=== PATIENT | male | born 1960 | race Caucasian/White ===

== ENCOUNTER 2019-01-22 00:39 | Emergency (ER) | payer SELFPAY ==
--- OUTSIDE RECORDS SUMMARY | 2019-01-22 00:44 | XMS REPORT | Continuity of Care Document ---
:1960 Author Organization [employer] Care Team Providers Name Role Phone [employer] Unavailable Unavailable Problems Problem Status Onset Classification Date Comments Source Date Reported Unilateral primary 07/25/19 07/27/2017 [facility] osteoarthritis, 18 right knee Gastroesophageal Active Problem 07/27/2017 [facility] reflux disease (disorder) Osteoarthritis Active Problem 07/27/2017 [facility] (disorder) Pain in right knee Active Problem 07/27/2017 [facility] (finding) Medications Medication Details Route Status Patient Ordering Order Source Instructions Provider Date NS bolus 250 mL 250 mL, IV, Inactive [facility] BOLUS, other 2018 (see comment), start date 07/25/17 18:42:00 CDT celecoxib 200 MG 200 mg=1 caps, Active [facility] Oral Capsule Oral, Daily, # 2018 [Celebrex] 30 caps, 3 Refill(s) gabapentin 300 MG 300 mg=1 caps, Active 07/25/ [facility] Oral Capsule Oral, qHS, # 14 2018 caps Docusate Sodium 100 mg=1 caps, Active 07/25/ [facility] 100 MG Oral Oral, BID 2018 Capsule [Colace] Acetaminophen 325 1 tabs, Oral, Active 07/25/ [facility] MG / Hydrocodone q6hr, PRN as 2018 Bitartrate 10 MG needed for Oral Tablet pain, # 90 [[place] 10/325] tabs, 0 Refill(s) Aspirin 81 MG 81 mg=1 tabs, Active [facility] Oral Tablet Oral, BID, take 2018 for 6 weeks Aspirin 325 mg=1 tabs, Inactive 07/25/ [facility] Tab, Oral, BID, 2018 first dose 07/25/17 9:00:00 CDT multivitamin with 1 tabs, Tab, Inactive [facility] minerals Oral, Daily, 2018 first dose 07/25/17 9:00:00 CDT omeprazole 40 mg 40 mg, Misc, No Longer [facility] oral delayed Oral, Daily, Active 2018 release capsule first dose 07/25/17 9:00:00 CDT, Patient's Own Meds Cefazolin 2 gm, Soln-IV, Inactive [facility] IV Piggyback, 2018 q8hr, infuse over 30 minutes, order duration: 2 doses, first dose 07/25/17 8:00:00 CDT, stop date 07/25/17 23:59:00 CDT, Prophylaxis PriLOSEC 40 mg=2 caps, Inactive [facility] Cap-EC, Oral, 2018 qAM, first dose 07/25/17 8:00:00 CDT Cefazolin 1 gm, Soln-IV, No Longer [facility] IV Piggyback, Active 2017 q8hr, infuse over 30 minutes, first dose 07/24/17 23:00:00 CDT, stop date 07/25/17 22:59:00 CDT, DC THIS ORDER IF DOCUMENTED ANCEF ALLERGY, Prophylaxis Colace 100 mg=1 caps, No Longer [facility] Cap, Oral, BID, Active 2017 first dose 07/24/17 21:00:00 CDT Celebrex 200 mg=2 caps, No Longer [facility] Cap, Oral, BID, Active 2017 first dose 07/24/17 21:00:00 CDT Clindamycin 600 mg, Inactive I Soln-IV, IV 2018 Piggyback, q8hr, infuse over 30 minutes, order duration: 3 doses, first dose 07/24/17 20:00:00 CDT, stop date 07/25/17 19:59:00 CDT, GIVE THIS ONLY IF ANCEF ALLERGIC, Prophylaxis Morphine 3 mg=1.5 mL, No Longer 07/24/ [facility] Injection, IV Active 2018 Push, q3hr PRN for breakthrough pain, first dose 07/24/17 18:42:00 CDT Acetaminophen 325 1 tabs, Tab, No Longer 07/24/ [facility] MG / Hydrocodone Oral, q4hr PRN Active 2017 Bitartrate 10 MG for pain Oral Tablet mild-moderate [[place] 10/325] (1-6), first dose 07/24/17 18:42:00 CDTNotes: Max 4gm acetaminophen in 24 hours Ondansetron 4 mg=2 mL, No Longer 07/24/ [facility] Injection, IV Active 2018 Push, q8hr PRN for nausea/vomiting , first dose 07/24/17 18:42:00 CDT Promethazine 25 mg=1 mL, No Longer 07/24/ [facility] Injection, IM, Active 2018 q4hr PRN for severe nausea, first dose 07/24/17 18:42:00 CDT Ambien 5 mg=1 tabs, No Longer 07/24/ [facility] Tab, Oral, Once Active 2018 a day (at bedtime) PRN for sleep, first dose 07/24/17 18:42:00 CDT Diphenhydramine 25 mg=1 caps, No Longer 07/24/ [facility] Cap, Oral, q8hr Active 2017 PRN for itching, first dose 07/24/17 18:42:00 CDT Diphenhydramine 25 mg=0.5 mL, Inactive [facility] Injection, IV 2018 Push, Once, first dose 07/24/17 18:00:00 CDT, stop date 07/24/17 18:00:00 CDT Glycopyrrolate 0.2 mg=1 mL, Inactive 07/24/ [facility] Injection, IV 2018 Push, Once, first dose 07/24/17 18:00:00 CDT, stop date 07/24/17 18:00:00 CDT Bupivacaine 0.25% 300 mL, Nerve No Longer [facility] 300 mL pump 300 Block, 5 mL/hr, Active 2018 mL order duration: 3 days, start date 07/24/17 17:56:00 CDT, stop date 07/27/17 17:55:00 CDT Misc Medication 800 mL, Inactive 07/24/ [facility] Soln-IV, IV, 2018 Once, first dose 07/24/17 17:55:00 CDT, stop date 07/24/17 17:55:00 CDT Labetalol 5 mg=1 mL, Inactive 07/24/ [facility] Injection, IV 2018 Push, As Indicated PRN for hypertension, first dose 07/24/17 17:50:00 CDT Hydralazine 5 mg=0.25 mL, Inactive 07/24/ [facility] Injection, IV 2018 Push, As Indicated PRN for hypertension, first dose 07/24/17 17:50:00 CDT Morphine 2 mg=1 mL, Inactive 07/24/ [facility] Injection, IV 2018 Push, q5min PRN for pain, first dose 07/24/17 17:50:00 CDT Demerol HCl 12.5 mg=0.25 Inactive 07/24/ [facility] mL, Injection, 2018 IV Push, Once PRN for shivers, first dose 07/24/17 17:50:00 CDT Saline Lock Flush 10 mL, Soln, IV Inactive 07/24/ [facility] Push, As 2018 Indicated PRN for flush, first dose 07/24/17 17:50:00 CDT Dilaudid 0.5 mg=0.5 mL, Inactive 07/24/ [facility] Injection, IV 2018 Push, q10min PRN for pain severe (7-10), first dose 07/24/17 17:50:00 CDT Levalbuterol 0.21 0.63 mg=3 mL, Inactive 07/24/ [facility] MG/ML Inhalant Soln, NEB, Once 2018 Solution PRN for [Xopenex] shortness of breath or wheezing, first dose 07/24/17 17:50:00 CDT Promethazine 12.5 mg=0.5 mL, Inactive 07/24/ [facility] Injection, IM, 2018 Once PRN for vomiting, first dose 07/24/17 17:50:00 CDT Ondansetron 4 mg=2 mL, Inactive 07/24/ [facility] Injection, IV 2018 Push, q15min PRN for nausea, order duration: 2 doses, first dose 07/24/17 17:50:00 CDT, stop date Limited # of times fentaNYL 50 mcg=1 mL, Inactive 07/24/ [facility] Injection, IV, 2018 Once, first dose 07/24/17 17:17:00 CDT, stop date 07/24/17 17:17:00 CDT ondansetron 4 mg=2 mL, Inactive 07/24/ [facility] Injection, IV, 2018 Once, first dose 07/24/17 17:03:00 CDT, stop date 07/24/17 17:03:00 CDT ferrous sulfate 325 mg=1 tabs, No Longer [facility] Tab, Oral, Active 2018 TIDWM, first dose 07/24/17 17:00:00 CDT Saline Lock Flush 10 mL, Soln, IV No Longer 07/24/ [facility] Push, q8hr, Active 2017 first dose 07/24/17 17:00:00 CDT Bisacodyl 10 mg=1 supp, No Longer 07/24/ [facility] Supp, AK, Once Active 2017 PRN for constipation, first dose 07/24/17 16:55:00 CDT Flu Shot PF 0.5 mL, No Longer 07/24/ [facility] Injection, IM, Active 2017 Once PRN for other (see comment), first dose 07/24/17 16:55:00 CDT Saline Lock Flush 10 mL, Soln, IV No Longer 07/24/ [facility] Push, As Active 2017 Indicated PRN for flush, first dose 07/24/17 16:55:00 CDT LR 1,000 mL 1,000 mL, IV, No Longer 07/24/ [facility] 75 mL/hr, start Active 2017 date 07/24/17 16:55:00 CDT acetaminophen 1,000 mg, Inactive [facility] Soln-IV, IV 2017 Piggyback, Once, first dose 07/24/17 16:05:00 CDT, stop date 07/24/17 16:05:00 CDT fentaNYL 50 mcg=1 mL, Inactive 07/24/ [facility] Injection, IV, 2017 Once, first dose 07/24/17 15:55:00 CDT, stop date 07/24/17 15:55:00 CDT Misc Medication 1,000 mL, Inactive [facility] Soln-IV, IV, 2017 Once, first dose 07/24/17 15:52:00 CDT, stop date 07/24/17 15:52:00 CDT tranexamic acid 1,000 mg=10 mL, Inactive 07/24/ [facility] Soln, IV, Once, 2017 first dose 07/24/17 15:50:00 CDT, stop date 07/24/17 15:50:00 CDT dexamethasone 8 mg=2 mL, Inactive 07/24/ [facility] Injection, IV, 2018 Once, first dose 07/24/17 15:37:00 CDT, stop date 07/24/17 15:37:00 CDT propofol 160 mg=16 mL, Inactive 07/24/ [facility] Emulsion, IV, 2018 Once, first dose 07/24/17 15:27:00 CDT, stop date 07/24/17 15:27:00 CDT lidocaine 4 mL, Inactive [facility] Injection, IV, 2018 Once, first dose 07/24/17 15:27:00 CDT, stop date 07/24/17 15:27:00 CDT midazolam 1 mg=1 mL, Inactive 07/24/ [facility] Injection, IV, 2018 Once, first dose 07/24/17 15:21:00 CDT, stop date 07/24/17 15:21:00 CDT fentaNYL 50 mcg=1 mL, Inactive [facility] Injection, IV, 2017 Once, first dose 07/24/17 15:21:00 CDT, stop date 07/24/17 15:21:00 CDT ceFAZolin 3 gm, Inactive [facility] Powder-Inj, IV, 2017 Once, first dose 07/24/17 15:15:00 CDT, stop date 07/24/17 15:15:00 CDT midazolam 1 mg=1 mL, Inactive [facility] Injection, IV, 2017 Once, first dose 07/24/17 13:02:00 CDT, stop date 07/24/17 13:02:00 CDT fentaNYL 50 mcg=1 mL, Inactive [facility] Injection, IV, 2017 Once, first dose 07/24/17 13:02:00 CDT, stop date 07/24/17 13:02:00 CDT Cefazolin 3 gm, IV Inactive 07/24/ [facility] Piggyback, 2018 Once, infuse over 30 minutes, first dose 07/24/17 12:00:00 CDT, stop date 07/24/17 12:00:00 CDT, patient weight >120 kg, Prophylaxis Neurontin 300 mg=1 caps, Inactive 07/24/ [facility] Cap, Oral, 2018 Once, first dose 07/24/17 12:00:00 CDT, stop date 07/24/17 12:00:00 CDT, Give 1 hour pre-operatively Celebrex 400 mg=4 caps, Inactive 07/24/ [facility] Cap, Oral, 2018 Once, first dose 07/24/17 12:00:00 CDT, stop date 07/24/17 12:00:00 CDT Lidocaine 2% 0.2 0.2 mL, No Longer [facility] mL IV Start Injection, Active 2018 [[facility]] Subcutaneous, Once PRN for other (see comment), first dose 07/24/17 11:26:00 CDT LR 1,000 mL 1,000 mL, IV, Inactive [facility] 30 mL/hr, start 2018 date 07/24/17 11:26:00 CDT Oxycontin 10 mg=1 tabs, Inactive [facility] Tab-ER, Oral, 2018 Pre Op, first dose 07/24/17 11:26:00 CDT Tranexamic Acid 1 gm, Soln, IV, No Longer I As Indicated, Active 2017 first dose 07/24/17 11:26:00 CDT, 30 min prior to incision and at closure Omeprazole 40 MG 40 mg=1 caps, Active [facility] Enteric Coated Oral, Daily, 2018 Capsule GERD Allergies, Adverse Reactions, Alerts Substance Category Reaction Severity Reaction Status Date Comments Source type Reported No Known Assertion Drug [facility] Medication allergy Allergies Immunizations No Data Provided for This Section Results Order Name Results Value Reference Date Interpretation Comments Source Range LABORATORY Results Reported 07/25 (07/25/17 2:45 AM) LABORATORY Neutrophil # 11.0 1.5 - 8.1 07/25 LABORATORY PLT Morph Normal 07/25 LABORATORY Basophil # 0.0 0.0 - 0.2 07/25 LABORATORY Eosinophil % 0.0 0.0 - 0.5 07/25 LABORATORY Monocyte # 1.0 0.0 - 0.8 07/25 LABORATORY Lymphocyte # 0.9 1.0 - 5.5 07/25 LABORATORY RBC Morph Normal 07/25 LABORATORY Basophil % 0.1 0.0 - 1.0 07/25 LABORATORY Neutrophil % 85.5 45.0 - 07/25I 75.0 LABORATORY Monocyte % 7.4 2.0 - 12.0 07/25 LABORATORY Lymphocyte % 7.0 20.0 - 07/25I 40.0 LABORATORY Eosinophil # 0.0 0.0 - 4.0 07/25 LABORATORY Results Reported 07/25 [facility] (07/25/17 2:45 AM) LABORATORY Glucose Lvl 123 70 - 99 07/25 [facility] Comment: Adult reference range values reflect the clinical guidelines<br/ >of the [place] [employer]. LABORATORY Potassium 4.5 3.5 - 5.1 07/25 [facility] Level /2018 LABORATORY BUN 10 7 - 22 07/25I /2017 LABORATORY Chloride 105 95 - 109 07/25 [facility] Level /2018 LABORATORY Creatinine 0.87 0.50 - 07/25 [facility] 1.40 LABORATORY Sodium Level 141 135 - 145 07/25I /2017 LABORATORY eGFR 95 07/25 Result [facility] Comment: The eGFR is calculated using the CKD-EPI formula. In most young, healthy
in dividuals the eGFR will be >90 mL/min/1.73m2. The eGFR declines with age. An
eGFR of 60-89 may be normal in some populations, particularly the elderly, for
whom the CKD-EPI formula has not been extensively validated. Use of the eGFR is
not recommended in the following populations:<b r/>Individuals with unstable creatinine concentrations , including
p atients and those with serious co-morbid conditions.
Patients with extremes in muscle mass or diet.
The data above are obtained from the National Kidney Disease Education Program
(N KDEP) which additionally recommends that when the eGFR is used in patients<br/&g t;with extremes of body mass index for purposes of drug dosing, the eGFR should
be multiplied by the estimated BMI. LABORATORY Carbon 26 24 - 32 07/25 [facility] Dioxide Level /2017 LABORATORY AGAP 14.5 10.0 - 07/25 [facility] 20.0 LABORATORY Calcium Level 8.2 8.5 - 10.5 07/25I LABORATORY Results Reported 07/25I (07/25/17 2:45 AM) LABORATORY Hemoglobin 14.1 14.0 - 07/25 [facility] 18.0 2018 LABORATORY Hematocrit 42.3 42.0 - 07/25 [facility] 54.0 2018 LABORATORY MCV 94.6 80.0 - 07/25 [facility] 94.0 2018 LABORATORY Red Blood 4.47 4.70 - 07/25 [facility] Cell Count 6.10 LABORATORY MCH 31.5 27.0 - 07/25 [facility] 31.0 LABORATORY RDW 13.7 11.5 - 07/25 [facility] 14.5 LABORATORY Platelet 164 133 - 450 07/25 LABORATORY MPV 7.8 7.4 - 10.4 07/25 LABORATORY MCHC 33.3 32.0 - 07/25I 36.0 LABORATORY White Blood 12.9 3.7 - 10.4 07/25 Count LABORATORY Monocyte # 0.8 0.0 - 0.8 07/19 LABORATORY Lymphocyte # 1.7 1.0 - 5.5 07/19 LABORATORY Neutrophil # 3.0 1.5 - 8.1 07/19 LABORATORY Basophil # 0.0 0.0 - 0.2 07/19 LABORATORY Eosinophil % 0.3 0.0 - 0.5 07/19 LABORATORY Basophil % 0.4 0.0 - 1.0 07/19 LABORATORY Eosinophil # 5.5 0.0 - 4.0 07/19 LABORATORY Lymphocyte % 29.7 20.0 - 07/19I 40.0 LABORATORY Monocyte % 12.9 2.0 - 12.0 07/19 LABORATORY Neutrophil % 51.5 45.0 - 07/19I 75.0 LABORATORY Results Scanned 07/19I (07/19/17 4:31 PM) LABORATORY Creatinine 0.72 0.50 - 07/19I 1.40 /2017 LABORATORY BUN 7 7 - 22 07/19 LABORATORY Glucose Lvl 108 70 - 99 07/19 Result Comment: Adult reference range values reflect the clinical guidelines<br/ >of the [place] [employer]. LABORATORY eGFR 103 07/19 Result Comment: The eGFR is calculated using the CKD-EPI formula. In most young, healthy
in dividuals the eGFR will be >90 mL/min/1.73m2. The eGFR declines with age. An
eGFR of 60-89 may be normal in some populations, particularly the elderly, for
whom the CKD-EPI formula has not been extensively validated. Use of the eGFR is
not recommended in the following populations:<b r/>Individuals with unstable creatinine concentrations , including
p atients and those with serious co-morbid conditions.
Patients with extremes in muscle mass or diet.
The data above are obtained from the National Kidney Disease Education Program
(N KDEP) which additionally recommends that when the eGFR is used in patients<br/&g t;with extremes of body mass index for purposes of drug dosing, the eGFR should
be multiplied by the estimated BMI. LABORATORY Calcium Level 8.4 8.5 - 10.5 07/19 [facility] /2017 LABORATORY AGAP 11.0 10.0 - 07/19 [facility] 20.0 LABORATORY Carbon 29 24 - 32 07/19 [facility] Dioxide Level /2018 LABORATORY Potassium 4.0 3.5 - 5.1 07/19 [facility] Level /2018 LABORATORY Sodium Level 142 135 - 145 07/19 [facility] /2018 LABORATORY Chloride 106 95 - 109 07/19 [facility] Level /2018 LABORATORY PT 13.4 12.0 - 07/19 [facility] 14.7 LABORATORY INR 1.02 0.85 - 07/19 Result [facility] 1.17 Comment: RECOMMENDED RANGES FOR PROTIME INR:
2.0-3.0 for most medical and surgical thromboembolic states.
2.5-3.5 for artificial heart valves and recurrent embolism.
INR SHOULD BE USED ONLY FOR PATIENTS ON STABLE ANTICOAGULANT THERAPY. LABORATORY PTT 28.5 22.9 - 07/19 Result [facility] 35.8 /2017 Comment: Heparin Therapeutic Range: 57 - 92 Seconds LABORATORY Hematocrit 48.3 42.0 - 07/19 [facility] 54.0 2018 LABORATORY Hemoglobin 16.1 14.0 - 07/19 [facility] 18.0 2018 LABORATORY Red Blood 5.13 4.70 - 07/19 [facility] Cell Count 6.10 /2017 LABORATORY White Blood 5.8 3.7 - 10.4 07/19 [facility] Count /2018 LABORATORY Platelet 158 133 - 450 07/19 [facility] /2017 LABORATORY RDW 14.0 11.5 - 07/19 [facility] 14.5 /2018 LABORATORY MCHC 33.4 32.0 - 07/19I 36.0 LABORATORY MCH 31.4 27.0 - 07/19 [facility] 31.0 LABORATORY MCV 94.0 80.0 - 07/19I 94.0 LABORATORY MPV 7.6 7.4 - 10.4 07/19 LABORATORY UA WBC <1 0 - 5 07/19 LAB[facility]ORY UA Nitrite Negative Negative 07/19 LABORATORY UA RBC <1 0 - 2 07/19 LABORATORY UA Leuk Est Negative Negative 07/19 LABORATORY UA Squam None Seen 07/19 LABORATORY UA Clarity Clear Clear 07/19 LABORATORY UA pH 7.0 5.0 - 8.0 07/19 LABORATORY UA Color Colorless Yellow 07/19 LAB[facility]ORY UA Spec Grav 1.002 <=1.030 07/19 LAB[facility]ATORY UA Protein Negative Negative 07/19 LABORATORY UA Glucose Negative Negative 07/19 LAB[facility]ORY UA Ketones Negative Negative 07/19 LAB[facility]ORY UA Bili Negative Negative 07/19 LAB[facility]ORY UA Blood Negative Negative 07/19 LAB[facility]ORY UA <=1.0 0.1 - 1.0 07/19 [facility] Pathology Reports No Data Provided for This Section Diagnostic Reports No Data Provided for This Section Consultation Notes No Data Provided for This Section Discharge Summaries No Data Provided for This Section History and Physicals No Data Provided for This Section Vital Signs Vital Sign Value Date Comments Source Systolic (mm Hg) 137 07/25/2017 [facility] Diastolic (mm Hg) 81 07/25/2017 [facility] Respitory Rate 18 07/25/2017 [facility] Heart Rate 99 07/25/2017 [facility] Temperature Oral (F) 36.6 Alexa 07/25/2017 [facility] Temperature Oral (F) 36.5 Alexa 07/25/2017 [facility] Respitory Rate 18 07/25/2017 [facility] Heart Rate 96 07/25/2017 [facility] Systolic (mm Hg) 148 07/25/2017 [facility] Diastolic (mm Hg) 91 07/25/2017 [facility] Systolic (mm Hg) 132 07/25/2017 [facility] Diastolic (mm Hg) 90 07/25/2017 [facility] Temperature Oral (F) 36.5 Alexa 07/25/2017 [facility] Respitory Rate 16 07/25/2017 [facility] Heart Rate 96 07/25/2017 [facility] Temperature Oral (F) 36.7 Alexa 07/24/2017 [facility] Peripheral Pulse Rate 66 07/24/2017 [facility] Height 175.26 cm 07/24/2017 [facility] Weight Measured 123.88 07/24/2017 [facility] Height 175.26 cm 07/19/2017 [facility] Weight Measured 123.38 07/19/2017 [facility] Peripheral Pulse Rate 68 07/19/2017 [facility] Encounters Location Location Encounter Encounter Reason Attending ADM DC Status Source Details Type Number For Provider Date Date Visit [facility] Outpatient [id number] Naveen 04/24 04/24 Active Surgical [facility] /2016 [facility] Outpatient [id number] Naveen 04/24 04/25 [facility] Inpatient [id number] Naveen 07/24 07/25 Discharged Surgical [facility] /2017 [facility] Inpatient [id number] Naveen 07/24 07/25 [facility] Procedures Procedure Code Date Perfomer Comments Source ARTHROPLASTY KNEE 07/24/2017 auto-populated [facility] CONDYLE & PLATEAU from documented MEDIAL AND LATERAL surgical case [id number] (Right)<sup>1</sup> Colonoscopy 05/07/2012 [facility] Assessment and Plan No Data Provided for This Section Plan of Care No Data Provided for This Section Social History Social History Date Source Social History TypeResponse 07/19/2017 [facility] Smoking Status Never smoker Family History No Data Provided for This Section Advance Directives No Data Provided for This Section Functional Status No Data Provided for This Section
--- OUTSIDE RECORDS SUMMARY | 2019-01-22 00:45 | XMS REPORT | Summary of Care ---
:1960 Author Name Omi Miller Angela Address Unavailable Unavailable , Care Team Providers Name Role Phone MOHSEN FELIZ N.P. 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: Active Artificial knee joint present, right (V43.65, Z96.651) Status: Active Medications Name Dates Details No Reported Medications Refills: 0 Active Allergies and Adverse Reactions Name Dates Details No Known Allergies (Allergy) Status: Active Past Medical History Name Dates Details History of No significant past medical history Status: Resolved Procedures Procedure Dates Details History of No history of surgery Completed Immunization Name Dates Details Immunizations not documented Social History Name Dates Details - Status: Name Dates Details Never smoker Vital Signs Date Test Result Details No Known Vitals to report Results Date Description Value Details [id number] Tobacco Use Screening Completed DONE Plan of Care Name Dates Details Planned Observations Planned Goals not documented Interventions Provided Labs/Procedures/Imaging[O] Xray KNEE 3 VIEWS; Done: 21 Mar 2018PlanPatient Education/Instructions: Patient Education Provided Reassurance Follow Up: Please schedule an appointment as needed for any future problems or concerns.This encounter was performed under the supervision of Dr. Naveen Beckman. Instructions Name Dates Details Instructions not documented Encounters Appointment; NAVEEN BECKMAN M.D. On: 09-Apr-2017 16:15 Encounter Diagnosis: Problem not documented Appointment; MOHSEN FELIZ NP On: 12-Jul-2017 16:30 Encounter Diagnosis: Problem not documented Appointment; NAVEEN BECKMAN M.D. On: 24-Jul-2017 15:30 Encounter Diagnosis: Problem not documented Appointment; MOHSEN FELIZ NP On: 07-Aug-2017 10:00 Encounter Diagnosis: Problem not documented Appointment; NAVEEN BECKMAN M.D. On: 04-Sep-2017 10:15 Encounter Diagnosis: Problem not documented Appointment; NAVEEN BECKMAN M.D. On: 05-Oct-2017 8:30 Encounter Diagnosis: Problem not documented Appointment; NAVEEN BECKMAN M.D. On: 18-Oct-2017 16:30 Encounter Diagnosis: Problem not documented Appointment; MOHSEN FELIZ NP On: 21-Mar-2018 16:15 Encounter Diagnosis: Problem not documented
--- OUTSIDE RECORDS SUMMARY | 2019-01-22 00:45 | XMS REPORT | Summary of Care ---
:1960 Author Organization [facility] Address [address] [place] [address] Encounter [facility] [id number] Date(s): 07/24/17 - 07/25/17 [facility] [address] [place], [place] [phone] Discharge Diagnosis: Unilateral primary osteoarthritis, right knee Discharge Disposition: Discharged to Home or Self Care Attending Physician: Naveen Cano MD Admitting Physician: Naveen Cano MD Vital Signs Most recent to oldest 1 2 3 [Reference Range]: Temperature Oral [35.8-37.3 36.6 DegC 36.5 DegC 36.5 DegC DegC] (07/25/17 12:00 PM) (07/25/17 8:00 AM) (07/25/17 4:00 AM) Temperature Temporal Artery 36.7 DegC [36.3-37.8 DegC] (07/24/17 5:50 PM) Temperature Farenheit 97.88 DegF 97.7 DegF 97.7 DegF (07/25/17 12:00 PM) (07/25/17 8:00 AM) (07/25/17 4:00 AM) Temperature Temporal 98.06 Fahrenheit (07/24/17 5:50 PM) Peripheral Pulse Rate 66 bpm 68 bpm [55-105 bpm] (07/24/17 11:37 AM) (07/19/17 3:15 PM) Heart Rate Monitored [60-100 99 bpm 96 bpm 96 bpm bpm] (07/25/17 12:00 PM) (07/25/17 8:00 AM) (07/25/17 4:00 AM) Respiratory Rate [12-20] 18 18 16 (07/25/17 12:00 PM) (07/25/17 8:00 AM) (07/25/17 4:00 AM) SpO2 [90-100 %] 95 % 94 % 95 % (07/25/17 8:00 AM) (07/25/17 4:00 AM) (07/25/17 12:00 AM) Blood Pressure 137/81 mmHg 148/91 mmHg 132/90 mmHg [110-120/65-85 mmHg] *HI* *HI* *HI* (07/25/17 12:00 PM) (07/25/17 8:00 AM) (07/25/17 4:00 AM) Mean Arterial Pressure, Cuff 104 mmHg 105 mmHg 102.7 mmHg (07/25/17 4:00 AM) (07/25/17 12:00 AM) (07/24/17 8:20 PM) Height 175.26 cm 175.26 cm (07/24/17 11:37 AM) (07/19/17 3:15 PM) Height/Length Dosing 175.26 cm 175.26 cm (07/24/17 11:37 AM) (07/19/17 3:15 PM) Height Inches 69 in 69 in (07/24/17 11:37 AM) (07/19/17 3:15 PM) Weight 123.88 kg 123.38 kg (07/24/17 11:37 AM) (07/19/17 3:15 PM) Weight Dosing 123.88 kg 123.38 kg (07/24/17 11:37 AM) (07/19/17 3:15 PM) Weight Pounds 273 lb 271 lb (07/24/17 11:37 AM) (07/19/17 3:15 PM) Body Mass Index 40.33 kg/m2 40.17 kg/m2 (07/24/17 11:37 AM) (07/19/17 3:15 PM) Problem List Condition Effective Dates Status Health Status Informant GERD - Gastro-esophageal reflux Active disease(Confirmed) OA - Osteoarthritis(Confirmed) Active Pain in right knee(Confirmed) Active Allergies, Adverse Reactions, Alerts No Known Medication Allergies Medications acetaminophen 1,000 mg, Soln-IV, IV Piggyback, Once, first dose 07/24/17 16:05:00 CDT, stop date 07/24/17 16:05:00CDT Start Date: 07/24/17 Stop Date: 07/24/17 Status: CompletedAmbien 5 mg=1 tabs, Tab, Oral, Once a day (at bedtime) PRN for sleep, first dose 18:42:00 CDT Start Date: 07/24/17 Stop Date: 07/25/17 Status: Discontinuedaspirin 325 mg=1 tabs, Tab, Oral, BID, first dose 07/25/17 9:00:00 CDT Start Date: 07/25/17 Stop Date: 07/25/17 Status: Discontinuedaspirin 81 mg oral tablet 81 mg=1 tabs, Oral, BID, take for 6 weeks Start Date: 07/25/17 Stop Date: 08/08/17 Status: Orderedbisacodyl 10 mg=1 supp, Supp, IL, Once PRN for constipation, first dose 07/24/17 16:55:00 CDT Start Date: 07/24/17 Stop Date: 07/25/17 Status: Discontinuedbisacodyl 10 mg=2 tabs, Tab-DR, Oral, Daily PRN for constipation, first dose 07/24/17 16: 55:00 CDT Start Date: 07/24/17 Stop Date: 07/25/17 Status: DiscontinuedBupivacaine 0.25% 300 mL pump 300 mL 300 mL, Nerve Block, 5 mL/hr, order duration: 3 days, start date 07/24/17 17:56: 00 CDT, stop date 07/27/17 17:55:00 CDT Start Date: 07/24/17 Stop Date: 07/25/17 Status: DiscontinuedceFAZolin 1 gm, Soln-IV, IV Piggyback, q8hr, infuse over 30 minutes, first dose 07/24/17 23:00:00 CDT, stop date 07/25/17 22:59:00 CDT, DC THIS ORDER IF DOCUMENTED ANCEF ALLERGY, Prophylaxis Start Date: 07/24/17 Stop Date: 07/25/17 Status: DiscontinuedceFAZolin 2 gm, Soln-IV, IV Piggyback, q8hr, infuse over 30 minutes, order duration: 2 doses, first dose 07/25/17 8:00:00 CDT, stop date 07/25/17 23:59:00 CDT, Prophylaxis Start Date: 07/25/17 Stop Date: 07/25/17 Status: DiscontinuedceFAZolin 3 gm, IV Piggyback, Once, infuse over 30 minutes, first dose 07/24/17 12:00:00 CDT, stop date 07/24/17 12:00:00 CDT, patient weight >120 kg, Prophylaxis Start Date: 07/24/17 Stop Date: 07/24/17 Status: CompletedceFAZolin 3 gm, Powder-Inj, IV, Once, first dose 07/24/17 15:15:00 CDT, stop date 15:15:00 CDT Start Date: 07/24/17 Stop Date: 07/24/17 Status: CompletedCeleBREX 200 mg=2 caps, Cap, Oral, BID, first dose 07/24/17 21:00:00 CDT Start Date: 07/24/17 Stop Date: 07/25/17 Status: DiscontinuedCeleBREX 400 mg=4 caps, Cap, Oral, Once, first dose 07/24/17 12:00:00 CDT, stop date 12:00:00 CDT Start Date: 07/24/17 Stop Date: 07/24/17 Status: CompletedCeleBREX 200 mg oral capsule 200 mg=1 caps, Oral, Daily, # 30 caps, 3 Refill(s) Start Date: 07/25/17 Stop Date: 08/08/17 Status: Orderedclindamycin 600 mg, Soln-IV, IV Piggyback, q8hr, infuse over 30 minutes, order duration: 3 doses, first dose 07/24/17 20:00:00 CDT, stop date 07/25/17 19:59:00 CDT, GIVE THIS ONLY IF ANCEF ALLERGIC, Prophylaxis Start Date: 07/24/17 Stop Date: 07/24/17 Status: CanceledColace 100 mg=1 caps, Cap, Oral, BID, first dose 07/24/17 21:00:00 CDT Start Date: 07/24/17 Stop Date: 07/25/17 Status: DiscontinuedColace 100 mg oral capsule 100 mg=1 caps, Oral, BID Start Date: 07/25/17 Stop Date: 08/08/17 Status: OrderedDemerol HCl 12.5 mg=0.25 mL, Injection, IV Push, Once PRN for shivers, first dose 07/24/17 17:50:00 CDT Start Date: 07/24/17 Stop Date: 07/24/17 Status: Discontinueddexamethasone 8 mg=2 mL, Injection, IV, Once, first dose 07/24/17 15:37:00 CDT, stop date 15:37:00 CDT Start Date: 07/24/17 Stop Date: 07/24/17 Status: CompletedDilaudid 0.5 mg=0.5 mL, Injection, IV Push, q10min PRN for pain severe (7-10), first dose 07/24/17 17:50:00 CDT Start Date: 07/24/17 Stop Date: 07/24/17 Status: DiscontinueddiphenhydrAMINE 25 mg=0.5 mL, Injection, IV Push, Once, first dose 07/24/17 18:00:00 CDT, stop date 07/24/17 18:00:00 CDT Start Date: 07/24/17 Stop Date: 07/24/17 Status: DiscontinueddiphenhydrAMINE 25 mg=1 caps, Cap, Oral, q8hr PRN for itching, first dose 07/24/17 18:42:00 CDT Start Date: 07/24/17 Stop Date: 07/25/17 Status: DiscontinuedfentaNYL 50 mcg=1 mL, Injection, IV, Once, first dose 07/24/17 15:21:00 CDT, stop date 15:21:00 CDT Start Date: 07/24/17 Stop Date: 07/24/17 Status: CompletedfentaNYL 50 mcg=1 mL, Injection, IV, Once, first dose 07/24/17 17:17:00 CDT, stop date 17:17:00 CDT Start Date: 07/24/17 Stop Date: 07/24/17 Status: CompletedfentaNYL 50 mcg=1 mL, Injection, IV, Once, first dose 07/24/17 13:02:00 CDT, stop date 13:02:00 CDT Start Date: 07/24/17 Stop Date: 07/24/17 Status: CompletedfentaNYL 50 mcg=1 mL, Injection, IV, Once, first dose 07/24/17 15:55:00 CDT, stop date 15:55:00 CDT Start Date: 07/24/17 Stop Date: 07/24/17 Status: Completedferrous sulfate 325 mg=1 tabs, Tab, Oral, TIDWM, first dose 07/24/17 17:00:00 CDT Start Date: 07/24/17 Stop Date: 07/25/17 Status: DiscontinuedFlu Shot PF 0.5 mL, Injection, IM, Once PRN for other (see comment), first dose 07/24/17 16: 55:00 CDT Start Date: 07/24/17 Stop Date: 07/25/17 Status: Discontinuedgabapentin 300 mg oral capsule 300 mg=1 caps, Oral, qHS, # 14 caps Start Date: 07/25/17 Stop Date: 08/08/17 Status: Orderedglycopyrrolate 0.2 mg=1 mL, Injection, IV Push, Once, first dose 07/24/17 18:00:00 CDT, stop date 07/24/17 18:00:00CDT Start Date: 07/24/17 Stop Date: 07/24/17 Status: DiscontinuedhydrALAZINE 5 mg=0.25 mL, Injection, IV Push, As Indicated PRN for hypertension, first dose 07/24/17 17:50:00 CDT Start Date: 07/24/17 Stop Date: 07/24/17 Status: Discontinuedlabetalol 5 mg=1 mL, Injection, IV Push, As Indicated PRN for hypertension, first dose 17:50:00 CDT Start Date: 07/24/17 Stop Date: 07/24/17 Status: Discontinuedlidocaine 4 mL, Injection, IV, Once, first dose 07/24/17 15:27:00 CDT, stop date 07/24/17 15:27:00 CDT Start Date: 07/24/17 Stop Date: 07/24/17 Status: CompletedLidocaine 2% 0.2 mL IV Start [[place]] 0.2 mL, Injection, Subcutaneous, Once PRN for other (see comment), first dose 11:26:00 CDT Start Date: 07/24/17 Stop Date: 07/25/17 Status: DiscontinuedLR 1,000 mL 1,000 mL, IV, 75 mL/hr, start date 07/24/17 16:55:00 CDT Start Date: 07/24/17 Stop Date: 07/25/17 Status: DiscontinuedLR 1,000 mL 1,000 mL, IV, 30 mL/hr, start date 07/24/17 11:26:00 CDT Start Date: 07/24/17 Stop Date: 07/24/17 Status: Discontinuedmidazolam 1 mg=1 mL, Injection, IV, Once, first dose 07/24/17 15:21:00 CDT, stop date 15:21:00 CDT Start Date: 07/24/17 Stop Date: 07/24/17 Status: Completedmidazolam 1 mg=1 mL, Injection, IV, Once, first dose 07/24/17 13:02:00 CDT, stop date 13:02:00 CDT Start Date: 07/24/17 Stop Date: 07/24/17 Status: CompletedMisc Medication 1,000 mL, Soln-IV, IV, Once, first dose 07/24/17 15:52:00 CDT, stop date 15:52:00 CDT Start Date: 07/24/17 Stop Date: 07/24/17 Status: CompletedMisc Medication 800 mL, Soln-IV, IV, Once, first dose 07/24/17 17:55:00 CDT, stop date 07/24/17 17:55:00 CDT Start Date: 07/24/17 Stop Date: 07/24/17 Status: Completedmorphine 3 mg=1.5 mL, Injection, IV Push, q3hr PRN for breakthrough pain, first dose 18:42:00 CDT Start Date: 07/24/17 Stop Date: 07/25/17 Status: Discontinuedmorphine 2 mg=1 mL, Injection, IV Push, q5min PRN for pain, first dose 07/24/17 17:50:00 CDT Start Date: 07/24/17 Stop Date: 07/24/17 Status: Discontinuedmultivitamin with minerals 1 tabs, Tab, Oral, Daily, first dose 07/25/17 9:00:00 CDT Start Date: 07/25/17 Stop Date: 07/25/17 Status: DiscontinuedNeurontin 300 mg=1 caps, Cap, Oral, Once, first dose 07/24/17 12:00:00 CDT, stop date 12:00:00 CDT, Give 1 hour pre-operatively Start Date: 07/24/17 Stop Date: 07/24/17 Status: CompletedNorco 10 mg-325 mg oral tablet 1 tabs, Oral, q6hr, PRN as needed for pain, # 90 tabs, 0 Refill(s) Start Date: 07/25/17 Stop Date: 08/08/17 Status: OrderedNorco 10 mg-325 mg oral tablet 1 tabs, Tab, Oral, q4hr PRN for pain mild-moderate (1-6), first dose 07/24/17 18 :42:00 CDT Notes: Max 4gm acetaminophen in 24 hours Start Date: 07/24/17 Stop Date: 07/25/17 Status: DiscontinuedNorco 10 mg-325 mg oral tablet 2 tabs, Tab, Oral, q4hr PRN for pain severe (7-10), first dose 07/24/17 18:42: 00 CDT Notes: Max 4gm acetaminophen in 24 hours Start Date: 07/24/17 Stop Date: 07/25/17 Status: DiscontinuedNS bolus 250 mL 250 mL, IV, BOLUS, other (see comment), start date 07/25/17 18:42:00 CDT Start Date: 07/25/17 Stop Date: 07/25/17 Status: Discontinuedomeprazole 40 mg oral delayed release capsule 40 mg, Misc, Oral, Daily, first dose 07/25/17 9:00:00 CDT, Patient's Own Meds Start Date: 07/25/17 Stop Date: 07/24/17 Status: Discontinuedomeprazole 40 mg oral delayed release capsule 40 mg=1 caps, Oral, Daily, GERD Start Date: 07/19/17 Stop Date: 08/02/17 Status: Orderedondansetron 4 mg=2 mL, Injection, IV Push, q8hr PRN for nausea/vomiting, first dose 18:42:00 CDT Start Date: 07/24/17 Stop Date: 07/25/17 Status: Discontinuedondansetron 4 mg=2 mL, Injection, IV Push, q15min PRN for nausea, order duration: 2 doses, first dose 07/24/17 17:50:00 CDT, stop date Limited # of times Start Date: 07/24/17 Stop Date: 07/24/17 Status: Discontinuedondansetron 4 mg=2 mL, Injection, IV, Once, first dose 07/24/17 17:03:00 CDT, stop date 17:03:00 CDT Start Date: 07/24/17 Stop Date: 07/24/17 Status: CompletedOxyCONTIN 10 mg=1 tabs, Tab-ER, Oral, Pre Op, first dose 07/24/17 11:26:00 CDT Start Date: 07/24/17 Stop Date: 07/24/17 Status: CompletedPriLOSEC 40 mg=2 caps, Cap-EC, Oral, qAM, first dose 07/25/17 8:00:00 CDT Start Date: 07/25/17 Stop Date: 07/25/17 Status: Discontinuedpromethazine 25 mg=1 mL, Injection, IM, q4hr PRN for severe nausea, first dose 07/24/17 18:42 :00 CDT Start Date: 07/24/17 Stop Date: 07/25/17 Status: Discontinuedpromethazine 12.5 mg=0.5 mL, Injection, IM, Once PRN for vomiting, first dose 07/24/17 17:50: 00 CDT Start Date: 07/24/17 Stop Date: 07/24/17 Status: Discontinuedpropofol 160 mg=16 mL, Emulsion, IV, Once, first dose 07/24/17 15:27:00 CDT, stop date 15:27:00 CDT Start Date: 07/24/17 Stop Date: 07/24/17 Status: CompletedSaline Lock Flush 10 mL, Soln, IV Push, As Indicated PRN for flush, first dose 07/24/17 17:50:00 CDT Start Date: 07/24/17 Stop Date: 07/24/17 Status: DiscontinuedSaline Lock Flush 10 mL, Soln, IV Push, As Indicated PRN for flush, first dose 07/24/17 16:55:00 CDT Start Date: 07/24/17 Stop Date: 07/25/17 Status: DiscontinuedSaline Lock Flush 10 mL, Soln, IV Push, q8hr, first dose 07/24/17 17:00:00 CDT Start Date: 07/24/17 Stop Date: 07/25/17 Status: Discontinuedtranexamic acid 1 gm, Soln, IV, As Indicated, first dose 07/24/17 11:26:00 CDT, 30 min prior to incision and at closure Start Date: 07/24/17 Stop Date: 07/25/17 Status: Discontinuedtranexamic acid 1,000 mg=10 mL, Soln, IV, Once, first dose 07/24/17 15:50:00 CDT, stop date 15:50:00 CDT Start Date: 07/24/17 Stop Date: 07/24/17 Status: CompletedXopenex 0.63 mg/3 mL inhalation solution 0.63 mg=3 mL, Soln, NEB, Once PRN for shortness of breath or wheezing, first dose 07/24/17 17:50:00 CDT Start Date: 07/24/17 Stop Date: 07/24/17 Status: Discontinued Results LABORATORY Most recent to oldest 1 2 3 4 [Reference Range]: Results Reported Reported Reported Scanned (07/25/17 2:45 AM) (07/25/17 2:45 AM) (07/25/17 2:45 AM) (07/19/17 4:31 PM) White Blood Count 12.9 K/CMM 5.8 K/CMM [3.7-10.4 K/CMM] *HI* *NA* (07/25/17 2:45 AM) (07/19/17 4:31 PM) Red Blood Cell Count 4.47 M/CMM 5.13 M/CMM [4.70-6.10 M/CMM] *LOW* *NA* (07/25/17 2:45 AM) (07/19/17 4:31 PM) Hemoglobin [14.0-18.0 14.1 gm/dL 16.1 gm/dL gm/dL] *NA* *NA* (07/25/17 2:45 AM) (07/19/17 4:31 PM) Hematocrit [42.0-54.0 42.3 % 48.3 % %] *NA* *NA* (07/25/17 2:45 AM) (07/19/17 4:31 PM) Platelet [133-450 164 K/CMM 158 K/CMM K/CMM] *NA* *NA* (07/25/17 2:45 AM) (07/19/17 4:31 PM) MCV [80.0-94.0 fL] 94.6 fL 94.0 fL *HI* *NA* (07/25/17 2:45 AM) (07/19/17 4:31 PM) MCH [27.0-31.0 pg] 31.5 pg 31.4 pg *HI* *HI* (07/25/17 2:45 AM) (07/19/17 4:31 PM) MCHC [32.0-36.0 33.3 gm/dL 33.4 gm/dL gm/dL] *NA* *NA* (07/25/17 2:45 AM) (07/19/17 4:31 PM) RDW [11.5-14.5 %] 13.7 % 14.0 % *NA* *NA* (07/25/17 2:45 AM) (07/19/17 4:31 PM) MPV [7.4-10.4 fL] 7.8 fL 7.6 fL *NA* *NA* (07/25/17 2:45 AM) (07/19/17 4:31 PM) Neutrophil % 85.5 % 51.5 % [45.0-75.0 %] *HI* *NA* (07/25/17 2:45 AM) (07/19/17 4:31 PM) Lymphocyte % 7.0 % 29.7 % [20.0-40.0 %] *LOW* *NA* (07/25/17 2:45 AM) (07/19/17 4:31 PM) Monocyte % [2.0-12.0 7.4 % 12.9 % %] *NA* *HI* (07/25/17 2:45 AM) (07/19/17 4:31 PM) Eosinophil % [0.0-0.5 0.0 K/CMM 0.3 K/CMM K/CMM] *NA* *NA* (07/25/17 2:45 AM) (07/19/17 4:31 PM) Basophil % [0.0-1.0 0.1 % 0.4 % %] *NA* *NA* (07/25/17 2:45 AM) (07/19/17 4:31 PM) Neutrophil # [1.5-8.1 11.0 K/CMM 3.0 K/CMM K/CMM] *HI* *NA* (07/25/17 2:45 AM) (07/19/17 4:31 PM) Lymphocyte # [1.0-5.5 0.9 K/CMM 1.7 K/CMM K/CMM] *LOW* *NA* (07/25/17 2:45 AM) (07/19/17 4:31 PM) Monocyte # [0.0-0.8 1.0 K/CMM 0.8 K/CMM K/CMM] *HI* *NA* (07/25/17 2:45 AM) (07/19/17 4:31 PM) Eosinophil # [0.0-4.0 0.0 % 5.5 % %] *NA* *HI* (07/25/17 2:45 AM) (07/19/17 4:31 PM) Basophil # [0.0-0.2 0.0 K/CMM 0.0 K/CMM K/CMM] *NA* *NA* (07/25/17 2:45 AM) (07/19/17 4:31 PM) RBC Morph Normal *NA* (07/25/17 2:45 AM) PLT Morph Normal *NA* (07/25/17 2:45 AM) PT [12.0-14.7 13.4 seconds seconds] *NA* (07/19/17 4:31 PM) INR [0.85-1.17] 1.02 1 *NA* (07/19/17 4:31 PM) PTT [22.9-35.8 28.5 seconds 2 seconds] *NA* (07/19/17 4:31 PM) UA Clarity [Clear] Clear *NA* (07/19/17 4:31 PM) UA Color [Yellow] Colorless *NA* (07/19/17 4:31 PM) UA Spec Grav 1.002 [<=1.030] *NA* (07/19/17 4:31 PM) UA Bili [Negative] Negative *NA* (07/19/17 4:31 PM) UA pH [5.0-8.0] 7.0 *NA* (07/19/17 4:31 PM) UA Urobilinogen <=1.0 mg/dL [0.1-1.0 mg/dL] *NA* (07/19/17 4:31 PM) UA Blood [Negative] Negative *NA* (07/19/17 4:31 PM) UA Glucose [Negative] Negative *NA* (07/19/17 4:31 PM) UA Ketones [Negative] Negative *NA* (07/19/17 4:31 PM) UA Protein [Negative] Negative *NA* (07/19/17 4:31 PM) UA Nitrite [Negative] Negative *NA* (07/19/17 4:31 PM) UA Leuk Est Negative [Negative] *NA* (07/19/17 4:31 PM) UA WBC [0-5 /HPF] <1 /HPF *NA* (07/19/17 4:31 PM) UA RBC [0-2 /HPF] <1 /HPF *NA* (07/19/17 4:31 PM) UA Squam Epithelial None Seen *NA* (07/19/17 4:31 PM) Sodium Level [135-145 141 mEq/L 142 mEq/L mEq/L] *NA* *NA* (07/25/17 2:45 AM) (07/19/17 4:31 PM) Potassium Level 4.5 mEq/L 4.0 mEq/L [3.5-5.1 mEq/L] *NA* *NA* (07/25/17 2:45 AM) (07/19/17 4:31 PM) Chloride Level 105 mEq/L 106 mEq/L [95-109 mEq/L] *NA* *NA* (07/25/17 2:45 AM) (07/19/17 4:31 PM) Total Carbon Dioxide 26 mEq/L 29 mEq/L Level [24-32 mEq/L] *NA* *NA* (07/25/17 2:45 AM) (07/19/17 4:31 PM) AGAP [10.0-20.0 14.5 mEq/L 11.0 mEq/L mEq/L] *NA* *NA* (07/25/17 2:45 AM) (07/19/17 4:31 PM) BUN [7-22 mg/dL] 10 mg/dL 7 mg/dL *NA* *NA* (07/25/17 2:45 AM) (07/19/17 4:31 PM) Creatinine [0.50-1.40 0.87 mg/dL 0.72 mg/dL mg/dL] *NA* *NA* (07/25/17 2:45 AM) (07/19/17 4:31 PM) Glucose Lvl [70-99 123 mg/dL 3 108 mg/dL 4 mg/dL] *HI* *HI* (07/25/17 2:45 AM) (07/19/17 4:31 PM) Calcium Level 8.2 mg/dL 8.4 mg/dL [8.5-10.5 mg/dL] *LOW* *LOW* (07/25/17 2:45 AM) (07/19/17 4:31 PM) eGFR 95 mL/min/1.73m2 5 103 mL/min/1.73m2 6 *NA* *NA* (07/25/17 2:45 AM) (07/19/17 4:31 PM) 1Result Comment: RECOMMENDED RANGES FOR PROTIME INR: 2.0-3.0 for most medical and surgical thromboembolic states. 2.5-3.5 for artificial heart valves and recurrent embolism. INR SHOULD BE USED ONLY FOR PATIENTS ON STABLE ANTICOAGULANT THERAPY.2Result Comment: Heparin Therapeutic Range: 57 - 92 [id number] Comment: Adult reference range values reflect the clinical guidelines of the [place] [employer].4Result Comment: Adult reference range values reflect the clinical guidelines of the [place] [employer].5Result Comment: The eGFR is calculated using the CKD-EPI formula. In most young, healthy individuals the eGFR will be >90 mL/min/1.73m2. The eGFR declines with age. An eGFR of 60-89 may be normal in some populations, particularly the elderly, for whom the CKD-EPI formula has not been extensively validated. Use of the eGFR is not recommended in the following populations: Individuals with unstable creatinine concentrations, including patients and those with serious co-morbid conditions. Patients with extremes in muscle mass or diet. The data above are obtained from the National Kidney Disease Education Program (NKDEP) which additionally recommends that when the eGFR is used in patients with extremes of body mass index for purposes of drug dosing, the eGFR should be multiplied by the estimated BMI.6Result Comment: The eGFR is calculated using the CKD-EPI formula. In most young, healthy individuals the eGFR will be >90 mL/min/1.73m2. The eGFR declines with age. An eGFR of 60-89 may be normal in some populations, particularly the elderly, for whom the CKD-EPI formula has not been extensively validated. Use of the eGFR is not recommended in the following populations: Individuals with unstable creatinine concentrations, including patients and those with serious co-morbid conditions. Patients with extremes in muscle mass or diet. The data above are obtained from the National Kidney Disease Education Program (NKDEP) which additionally recommends that when the eGFR is used in patients with extremes of body mass index for purposes of drug dosing, the eGFR should be multiplied by the estimated BMI.Radiology Reports Exam Date Time Procedure Performing Provider Status 07/25/17 2:25 PM XR Knee 1 or 2 Views Right [id number] Navjot Hopkins ( Verified) Notes:(XR Knee 1 or 2 Views Right [id number]) Reason For Exam: Total Knee Repalcement ;Other (please specify)FINAL REPORT Postop knee EXAM DESCRIPTION: Radiographic examination of Right knee in 2 views: CLINICAL HISTORY: Postop. COMPARISON: None Available. TECHNIQUE: AP and lateral views of the right knee are submitted. FINDINGS: No evidence of fracture, subluxation or dislocation is noted. Patient is status post right knee arthroplasty. The prosthetic components appear normal. Evidence of significant postoperative soft tissue swelling is noted. IMPRESSION: Significant soft tissue swelling and joint effusion. Unremarkable postoperative appearance status post arthroplasty otherwise. . Electronically signed by: Alyce David MD 07/25/2017 5:45 PM CDT Final Dictated by: Alyce David MD Dictated DT/TM: 07/25/2017 5:45 pm Signed by: Alyce David MD Signed (Electronic Signature): 07/25/2017 5:45 pm Transcribed by: SHERRY Exam Date Time Procedure Performing Provider Status 07/19/17 4:30 PM XR Chest 2 Views Reymundo Mccoy (Verified) Notes:(XR Chest 2 Views) Reason For Exam: Pre-Operative surgery;Other (please specify)FINAL REPORT STUDY: Chest, 2 views. COMPARISON: None. HISTORY: Preoperative for right total knee arthroplasty. FINDINGS: The lungs are clear. No focal consolidation. No pleural effusion is seen. No pneumothorax is seen. The heart is normal in size. Mild degenerative changes of spine. IMPRESSION: No acute cardiopulmonary process. Electronically signed by: Kena Gusman MD 07/20/2017 8:32 AM CDT Immunizations No data available for this section Procedures Procedure Date Related Diagnosis Body Site ARTHROPLASTY KNEE CONDYLE & PLATEAU MEDIAL AND 07/24/17 LATERAL 36048 (Right)1 Colonoscopy 2012 1auto-populated from documented surgical case Social History Social History Type Response Smoking Status Never smoker Assessment and Plan No data available for this section
--- OUTSIDE RECORDS SUMMARY | 2019-01-22 00:45 | XMS REPORT | Summary of Care ---
:1960 Author Organization [facility] Address [address] [place] [address] Encounter [facility] [id number] Date(s): 04/24/17 - 04/24/17 [facility] [address] [place] [address]- Final: Unilateral primary osteoarthritis, right knee Discharge Disposition: Discharged to Home or Self Care Attending Physician: Naveen Cano MD Admitting Physician: Naveen Cano MD Referring Physician: Naveen Cano MD Vital Signs No data available for this section Problem List No data available for this section Allergies, Adverse Reactions, Alerts No data available for this section Medications No data available for this section Results No data available for this section Immunizations No data available for this section Procedures No data available for this section Social History No data available for this section Assessment and Plan No data available for this section
[2019-01-22] MEDS ORDERED: FENTANYL CITR 100 MCG/2 ML ONE (01:03)
[2019-01-22 01:27] LABS: Absolute Lymphocytes (CBC) 1.4 K/uL (0.7-4.9); Basophils % 0.7 % (0-1.3); Hematocrit 47.1 % (39.6-49.0); Lymphocytes % 18.1 % (15.3-44.8); MPV 8.3 fL (7.6-11.3); RBC Red Blood Cell Count 5.07 M/uL (4.33-5.43)
[2019-01-22 02:49] LABS: Albumin 3.6 g/dL (3.4-5.0); Bilirubin Direct 0.1 mg/dL (0-0.2); Bilirubin Total 0.5 mg/dL (0.2-1.0); Potassium 3.9 mmol/L (3.5-5.1); Protein, Total 6.5 g/dL (6.4-8.2)
--- NOTE | 2019-01-22 03:54 | ER ---
Nurse's Notes [facility] Name: Montana Vee Age: 58 yrs Sex: Male : 1960 Arrival Date: 01/22/2019 Time: 00:42 Bed 8 Private MD: Diagnosis: Generalized abdominal pain Presentation: 01/22 00:50 Presenting complaint: EMS states: they were toned out for report of pt with abdominal bb pain which is sharp, continuous and is 10/10. Transition of care: patient was not received from another setting of care. Onset of symptoms was January 21, 2019. Risk Assessment: Do you want to hurt yourself or someone else? Patient reports no desire to harm self or others. Initial Sepsis Screen: Does the patient meet any 2 criteria? No. Patient's initial sepsis screen is negative. Does the patient have a suspected source of infection? No. Patient's initial sepsis screen is negative. Care prior to arrival: IV initiated. 20 GA, in the left antecubital area. 00:50 Method Of Arrival: EMS: [facility] bb 00:50 Acuity: TYS[facility] 3 bb Historical: - Allergies: 01:45 No Known Allergies; bb - Home Meds: 01:45 None [Active]; bb - PMHx: 01:45 Hernia; bb - PSHx: 01:45 Knee surgery; bb - Immunization history:: Adult Immunizations up to date. - Social history:: Smoking status: Patient/guardian denies using tobacco. - Ebola Screening: : No symptoms or risks identified at this time. Screenin:44 Abuse screen: Denies threats or abuse. Denies injuries from another. Nutritional lp1 screening: No deficits noted. Tuberculosis screening: No symptoms or risk factors identified. Fall Risk None identified. Assessment: 00:42 General: Appears uncomfortable, Behavior is appropriate for age. Pain: Complains of lp1 pain in umbilical area, right lower quadrant and left lower quadrant Pain currently is 9 out of 10 on a pain scale. Quality of pain is described as sharp. Neuro: Level of Consciousness is awake, alert, obeys commands, Oriented to person, place, time, situation. Cardiovascular: Patient's skin is warm and dry. Respiratory: Respiratory effort is even. GI: Abdomen is non-distended, Bowel sounds present X 4 quads. Reports lower abdominal pain, hernia. : No signs and/or symptoms were reported regarding the genitourinary system. EENT: No signs and/or symptoms were reported regarding the EENT system. Derm: Skin is pink, warm \\T\\ dry. Musculoskeletal: No signs and/or symptoms reported regarding the musculoskeletal system. 01:40 Reassessment: Patient states pain relief at this time Patient states feeling better. lp1 02:28 Reassessment: Patient appears in no apparent distress at this time. Patient resting, lp1 eyes closed, respirations unlabored. 04:07 Reassessment: Patient appears in no apparent distress at this time. Patient is alert, lp1 oriented x 3, equal unlabored respirations, skin warm/dry/pink. Patient states feeling better. Patient states symptoms have improved. 04:08 Reassessment: Patient calling for ride home at this time. lp1 Vital Signs: 00:45 BP 158 / 98; Pulse 76; Resp 18 S; Temp 98.4(O); Pulse Ox 99% on R/A; Weight 106.59 kg bb (R); Height 5 ft. 8 in. (172.72 cm) (R); Pain 10/10; 01:47 BP 138 / 80; Pulse 88; Resp 16 S; Pulse Ox 93% on R/A; bb 02:15 BP 130 / 77; Pulse 89; Resp 18; Pulse Ox 96% on R/A; lp1 03:15 BP 143 / 88; Pulse 89; Resp 18; Pulse Ox 96% on R/A; lp1 04:07 BP 140 / 89; Pulse 90; Resp 18; Pulse Ox 96% on R/A; lp1 00:45 Body Mass Index 35.73 (106.59 kg, 172.72 cm) bb ED Course: 00:42 Patient arrived in ED. bb 00:42 Quita Chacko, RN is Primary Nurse. lp1 00:44 Maintain EMS IV. Dressing intact. Good blood return noted. Site clean \\T\\ dry. Gauge \\T\\ lp 1 site: 20g to L AC. 00:44 Patient has correct armband on for positive identification. Placed in gown. Bed in low lp1 position. Call light in reach. Pulse ox on. NIBP on. 00:45 Arm band placed on Patient placed in an exam room, on a stretcher, on pulse oximetry. bb 00:54 Ly, Jose, MD is Attending Physician. gs 01:43 Triage completed. bb 01:47 Radiology exam delayed due to lab results not completed at this time. (BUN/Creatinine). kw1 02:03 Radiology exam delayed due to lab results not completed at this time. (BUN/Creatinine). kw1 02:16 Radiology exam delayed due to lab results not completed at this time. (BUN/Creatinine). kw1 02:27 No provider procedures requiring assistance completed. Lab(s) recollected, by me, sent lp1 to lab. 02:35 Radiology exam delayed due to lab results not completed at this time. (BUN/Creatinine). kw1 02:48 Note: Spoke with Lab regarding creatinine results. They had to do 2 re-collects but kw1 "results should be available at 02:45.". 03:29 CT Abd/Pelvis - IV Contrast Only In Process Unspecified. EDMS 04:08 IV discontinued, No redness/swelling at site. Pressure dressing applied. lp1 Administered Medications: 01:08 Drug: fentaNYL (PF) 50 mcg {Note: RASS 1.} Route: IVP; Site: left antecubital; lp1 01:40 Follow up: Response: Pain is decreased; RASS: Alert and Calm (0) lp1 Outcome: 03:53 Discharge ordered by . 04:08 Condition: good lp1 04:08 Discharge instructions given to patient, Instructed on discharge instructions, follow up and referral plans. Demonstrated understanding of instructions, follow-up care. 04:21 Discharged to home ambulatory. ak1 04:22 Patient left the ED. ak1 Signatures: Dispatcher [employer] EDMS Mariah Lala RN RN Quita Chacko RN RN lp1 Yue Wills RN RN ak1 Jose Ly MD MD Graciela Cabrera kw1 Corrections: (The following items were deleted from the chart) 01:09 01:08 fentaNYL (PF) 50 mcg IVP in left antecubital lp1 lp1
--- NOTE | 2019-01-22 03:55 | EDPHYS ---
Physician Documentation [facility] Name: Montana Vee Age: 58 yrs Sex: Male : 1960 Arrival Date: 01/22/2019 Time: 00:42 Bed 8 Private MD: ED Physician Jose Ly HPI: 01/22 03:51 This 58 yrs old Male presents to ER via EMS with complaints of Abdominal Pain.gs 03:51 The patient presents with abdominal pain in the upper abdomen, in the lower abdomen. gs Onset: The symptoms/episode began/occurred yesterday, at 21:00. The symptoms do not radiate. Associated signs and symptoms: Pertinent negatives: blood in stools, constipation, diarrhea, fever, vomiting. The symptoms are described as sharp. Modifying factors: The symptoms are alleviated by nothing, the symptoms are aggravated by nothing. Severity of pain: At its worst the pain was severe in the emergency department the pain is unchanged. The patient has experienced similar episodes in the past, a few times. Historical: - Allergies: 01:45 No Known Allergies; bb - Home Meds: 01:45 None [Active]; bb - PMHx: 01:45 Hernia; bb - PSHx: 01:45 Knee surgery; bb - Immunization history:: Adult Immunizations up to date. - Social history:: Smoking status: Patient/guardian denies using tobacco. - Ebola Screening: : No symptoms or risks identified at this time. ROS: 03:51 All other systems are negative. gs Exam: 03:51 Head/Face: Normocephalic, atraumatic. Eyes: Pupils equal round and reactive to light, gs extra-ocular motions intact. Lids and lashes normal. Conjunctiva and sclera are non-icteric and not injected. Cornea within normal limits. Periorbital areas with no swelling, redness, or edema. ENT: Nares patent. No nasal discharge, no septal abnormalities noted. Tympanic membranes are normal and external auditory canals are clear. Oropharynx with no redness, swelling, or masses, exudates, or evidence of obstruction, uvula midline. Mucous membranes moist. Neck: Trachea midline, no thyromegaly or masses palpated, and no cervical lymphadenopathy. Supple, full range of motion without nuchal rigidity, or vertebral point tenderness. No Meningismus. Chest/axilla: Normal chest wall appearance and motion. Nontender with no deformity. No lesions are appreciated. Cardiovascular: Regular rate and rhythm with a normal S1 and S2. No gallops, murmurs, or rubs. Normal PMI, no JVD. No pulse deficits. Respiratory: Lungs have equal breath sounds bilaterally, clear to auscultation and percussion. No rales, rhonchi or wheezes noted. No increased work of breathing, no retractions or nasal flaring. Back: No spinal tenderness. No costovertebral tenderness. Full range of motion. Male : Normal genitalia with no discharge or lesions. Skin: Warm, dry with normal turgor. Normal color with no rashes, no lesions, and no evidence of cellulitis. MS/ Extremity: Pulses equal, no cyanosis. Neurovascular intact. Full, normal range of motion. Neuro: Awake and alert, GCS 15, oriented to person, place, time, and situation. Cranial nerves II-XII grossly intact. Motor strength 5/5 in all extremities. Sensory grossly intact. Cerebellar exam normal. Normal gait. 03:51 Constitutional: The patient appears alert, awake. 03:51 Abdomen/GI: Palpation: moderate abdominal tenderness, in all quadrants, rebound tenderness, is not appreciated. 03:53 Abdomen/GI: Hernia: noted in the umbilical area, incarceration, is not appreciated, gs tenderness, that is mild. Vital Signs: 00:45 BP 158 / 98; Pulse 76; Resp 18 S; Temp 98.4(O); Pulse Ox 99% on R/A; Weight 106.59 kg bb (R); Height 5 ft. 8 in. (172.72 cm) (R); Pain 10/10; 01:47 BP 138 / 80; Pulse 88; Resp 16 S; Pulse Ox 93% on R/A; bb 02:15 BP 130 / 77; Pulse 89; Resp 18; Pulse Ox 96% on R/A; lp1 03:15 BP 143 / 88; Pulse 89; Resp 18; Pulse Ox 96% on R/A; lp1 04:07 BP 140 / 89; Pulse 90; Resp 18; Pulse Ox 96% on R/A; lp1 00:45 Body Mass Index 35.73 (106.59 kg, 172.72 cm) MDM: 00:58 Patient medically screened. gs 03:51 Differential diagnosis: AAA, appendicitis, bowel obstruction, diverticulitis. Data reviewed: vital signs, nurses notes, lab test result(s), radiologic studies. Counseling: I had a detailed discussion with the patient and/or guardian regarding: the historical points, exam findings, and any diagnostic results supporting the discharge/admit diagnosis, the presence of at least one elevated blood pressure reading (>120/80) during this emergency department visit. Response to treatment: the patient's symptoms have resolved after treatment, and as a result, I will discharge patient. Special discussion: I have referred the patient to see his PCP for further evaluation of high blood pressure. 01/22 00:59 Order name: Basic Metabolic Panel; Complete Time: 03:30 01/22 00:59 Order name: CBC with Diff; Complete Time: 02:04 01/22 00:59 Order name: Hepatic Function; Complete Time: 03:30 01/22 00:59 Order name: Lipase; Complete Time: 03:30 01/22 00:59 Order name: CT Abd/Pelvis - IV Contrast Only 01/22 00:59 Order name: IV Saline Lock; Complete Time: 00:59 01/22 00:59 Order name: Labs collected and sent; Complete Time: 00:59 Administered Medications: 01:08 Drug: fentaNYL (PF) 50 mcg {Note: RASS 1.} Route: IVP; Site: left antecubital; lp1 01:40 Follow up: Response: Pain is decreased; RASS: Alert and Calm (0) lp1 Disposition: 01/22/19 03:53 Discharged to Home. Impression: Generalized abdominal pain. - Condition is Stable. - Discharge Instructions: Abdominal Pain, Adult. - Medication Reconciliation Form, Thank You Letter, Antibiotic Education, Prescription Opioid Use form. - Follow up: Private Physician; When: 2 - 3 days; Reason: Re-evaluation by your physician. Signatures: Dispatcher [employer] EDMariah Smith RN RN bb Pena, Laura, RN RN lp1 Yue Wills RN RN ak1 Jose Ly MD MD Corrections: (The following items were deleted from the chart) 04:22 03:53 01/22/2019 03:53 Discharged to Home. Impression: Generalized abdominal pain. ak1 Condition is Stable. Forms are Medication Reconciliation Form, Thank You Letter, Antibiotic Education, Prescription Opioid Use. Follow up: Private Physician; When: 2 - 3 days; Reason: Re-evaluation by your physician. gs
[2019-01-22 04:26] VITALS: TEMP 98.4
[2019-01-22 04:29] VITALS: O2SAT 96
[2019-01-22 04:32] VITALS: BP 140/89
--- NOTE | 2019-01-22 09:53 | RAD REPORT ---
EXAM DESCRIPTION: CT - Abdomen Pelvis W Contrast - 01/22/2019 3:28 am CLINICAL HISTORY: ABD PAIN COMPARISON: None. TECHNIQUE: CT ABDOMEN PELVIS WITH IV CONTRAST on 01/22/2019 12:59 AM CDT This exam was performed according to our departmental dose-optimization program, which includes autom ated exposure control, adjustment of the mA and/or kV according to patient size and/or use of iterati ve reconstruction technique. FINDINGS: Lower lungs are clear. Abdomen: The liver is normal in appearance. There is no biliary dilatation. Gallbladder is decompress ed. Stomach is distended with fluid. The pancreas and spleen are normal in appearance. Adrenal glands are normal. Kidneys are mildly atrophic. Abdominal aorta is normal in course and caliber without aneurysm. There is no free air. There is no r etroperitoneal adenopathy.There is a small fat-containing umbilical hernia. Pelvis: There is mild distal colonic diverticulosis. Urinary bladder is unremarkable. There is no inocente e fluid. Appendix is normal. Skeleton: There are no acute osseous findings. No suspicious bony lesions. IMPRESSION: No acute inflammatory process. Electronically signed by: Yefri Ramirez MD 01/22/2019 3:44 AM CDT Due to temporary technical issues with the PACS/Fluency reporting system, reports are being signed by the in house radiologist as a courtesy to ensure prompt reporting. The interpreting radiologist is f ully responsible for the content of the report.
== END 2019-01-22 04:22 | disposition home or self-care (01) ==
LOC: ER 00:39
DX: R10.84 Generalized abdominal pain (principal)
CPT/HCPCS: 36415; 74177; 80048; 80076; 83690; 85025; 96374; 99284; J3010; Q9967